=== PATIENT | male | born 1955 | race Caucasian/White ===

== ENCOUNTER 2019-06-23 17:53 | Emergency (ER) | payer SELFPAY ==
[~2019-06-23] VITALS: Ht 182.9 cm; Wt 90.9 kg
[2019-06-23 18:19] LABS: BASO # 0.1 (0.0-0.2); BASO % 0.3 % (0.0-2.0); EOS % 0.1 % (0-4.0); GRAN # 17.3 (1.4-6.5); GRAN % 76.2 % (42.2-75.2); HEMOGLOBIN 11.7 g/dl (13.5-18.0); LYMPH # 3.9 (1.2-3.4); LYMPH % 16.9 % (20.0-51.0); MEAN CELL VOLUME 94 fl (80.0-100.0); MEAN CORPUSCULAR HEMOGLOBIN 31 pg (27.0-31.0); MEAN CORPUSCULAR HGB CONC 33 g/dl (33.0-37.0); MEAN PLATELET VOLUME 9.3 fl (7.4-10.4); MONO # 1.2 (0.1-0.6); MONO % 5.1 % (1.7-9.3); PLATELET COUNT 181 K/mm3 (130-400); RED BLOOD COUNT 3.82 M/mm3 (4.20-5.60)
[2019-06-23 18:20] VITALS: TEMP 97.3
[2019-06-23 18:27] LABS: ALANINE AMINOTRANSFERASE 81 U/L (21-72); ALBUMIN 3.1 gm/dL (3.5-5.0); ALKALINE PHOSPHATASE 38 U/L (50-136); ANION GAP 8 mmol/L (7-16); AST,SGOT 111 U/L (15-37); BILIRUBIN,TOTAL 0.7 mg/dL (0.0-1.0); BLOOD UREA NITROGEN 19 mg/dL (9-20); CALCIUM 7.2 mg/dL (8.4-10.2); CARBON DIOXIDE 22 mmol/L (22-30); CHLORIDE 110 mmol/L (98-107); CREATININE, serum 0.89 (0.66-1.25); GLUCOSE 150 mg/dL (74-106); POTASSIUM 4.4 mmol/L (3.4-5.0); SODIUM 139 mmol/L (137-145); TOTAL PROTEIN 5.6 gm/dL (6.4-8.2)
[2019-06-23 18:29] LABS: ALCOHOL(ethanol),MEDICAL < 10 mg/dL
[2019-06-23 18:32] LABS: HEMATOCRIT 35.9 % (42.0-52.0)
[2019-06-23 18:35] LABS: INR 1.1 (0.8-3.0); PROTHROMBIN TIME 13.2 SECONDS (9.7-12.8)
[2019-06-23 18:45] VITALS: BP 179/120; PULSE 133
== END 2019-06-23 19:00 | disposition short-term general hospital (02) ==
LOC: COL.ER 17:53
PROVIDERS: Emergency Medicine
DX: S42.002A Fracture of unspecified part of left clavicle, initial encounter for closed fracture (principal); S42.402B Unspecified fracture of lower end of left humerus, initial encounter for open fracture; S82.202B Unspecified fracture of shaft of left tibia, initial encounter for open fracture type I or II; S82.402B Unspecified fracture of shaft of left fibula, initial encounter for open fracture type I or II; M21.929 Unspecified acquired deformity of unspecified upper arm; Z23 Encounter for immunization; F17.210 Nicotine dependence, cigarettes, uncomplicated; R40.2412 Glasgow coma scale score 13-15, at arrival to emergency department; V43.52XA Car driver injured in collision with other type car in traffic accident, initial encounter
CPT/HCPCS: J0330; J0690; J2270; J3010; J7030